=== PATIENT | female | born 1970 | race Caucasian/White ===

== ENCOUNTER → 2018-02-16 | Outpatient (CLI) | payer BC ==
--- NOTE | 2018-02-16 17:53 | KCIC ---
ANKLE BILAT 3V History: Inflammatory polyarthropathy. Bilateral ankle pain right greater the last several months.. Comparison: None are available Right ankle No acute fracture or aggressive bone destruction. Calcaneal enthesophytes. Joint spaces intact. No evidence of erosive change. No dislocation. Soft tissues appear unremarkable. Left ankle No acute fracture or bone destruction. Calcaneal enthesophytes. Joint spaces grossly intact. No erosive changes are seen. No evidence of dislocation. Soft tissues appear grossly intact. IMPRESSION: No acute radiographic findings. Electronically signed by: Arjun Beal MD (02/16/2018 5:49 PM) [facility]
== END | disposition home or self-care (01) ==
LOC: KCIC 14:24
DX: M77.32 Calcaneal spur, left foot (principal); M77.31 Calcaneal spur, right foot
CPT/HCPCS: 73610